=== PATIENT | female | born 1955 | race Caucasian/White ===

== ENCOUNTER 2020-11-02 19:07 | Inpatient (IN) | payer OTHER, MEDICAID ==
[~2020-11-02] VITALS: Ht 157.5 cm; Wt 72.7 kg
[~2020-11-02 19:07] MED LIST: ACET-2708 MT; ATOR10TA PO; LOSA50TA41 PO; METF-414 PO
[2020-11-02] MEDS ORDERED: KETOROLAC 15MG/ML VIAL IV ONE (20:15)
[2020-11-02 20:41] LABS: HEMATOCRIT. 31.4 % (36.0-48.0); HEMOGLOBIN. 10.1 g/dL (12.0-16.0); MEAN CORPUSCULAR HEMOGLOBIN 19.3 pg (28.0-32.0); MEAN CORPUSCULAR VOLUME 60.2 fL (81.0-99.0); MEAN PLATELET VOLUME 9.1 fl (7.4-10.4); PLATELET 199 x1000/uL (130-400); RED BLOOD CELL COUNT 5.22 mill/uL (4.2-5.4); RED CELL DISTRIBUTION WIDTH 22.5 % (11.6-14.6)
[2020-11-02 20:45] LABS: CHLORIDE 100 mEq/L (98-107)
[2020-11-02 21:12] LABS: PLATELET ESTIMATE NORMAL
[2020-11-02 23:19] LABS: CLARITY URINE TURBID (CLEAR); COLOR URINE ORANGE (YELLOW); KETONES URINE TRACE (NEGATIVE); LEUKOCYTE ESTERASE URINE 3+ (NEGATIVE); NITRITE URINE NEGATIVE (NEGATIVE); OCCULT BLOOD URINE 3+ (NEGATIVE); PH URINE 5.5 (4.5-8.0); PROTEIN URINE 2+ (NEGATIVE); SPECIFIC GRAVITY URINE 1.014 (1.005-1.030)
[2020-11-02] MEDS ORDERED: CEFTRIAXONE 1 G PREMIX 50 ML IV ONE (23:30)
[2020-11-02] MEDS ORDERED: SODIUM CHLORIDE 0.9% 1,000 ML IV ONE (23:30)
[2020-11-03 01:31] LABS: CREATINE KINASE > 14000 IU/L (26-192)
[2020-11-03] MEDS: SODIUM CHL 0.9% + KCL 20MEQ/L 1,000 ML IV SCH ×2 (02:31→18:01)
[2020-11-03 10:00] VITALS: BP 101/77
[2020-11-03] MEDS ORDERED: ALBUTEROL SULFATE (10:46)
[2020-11-03] MEDS ORDERED: FLUT1BLS9 IH (10:46)
[2020-11-03] MEDS ORDERED: HIGH CHOLESTEROL MED (10:46)
[2020-11-03] MEDS ORDERED: ONDANSETRON HCL 4MG/2ML INJ IV PRN (11:30)
[2020-11-03] MEDS ORDERED: ACETAMINOPHEN 325MG TABLET PO PRN (11:30)
[2020-11-03] MEDS ORDERED: DEXTROSE 50% WATER 50ML SYRINGE IV PRN (11:30)
[2020-11-03] MEDS: BLOOD SUGAR DIAGNOSTIC STRIP TEST SCH ×3 (12:20→21:32)
[2020-11-03] MEDS: SODIUM CHLORIDE 0.9% 1,000 ML IV SCH (13:25)
[2020-11-03] MEDS: METHYLPREDNISOLONE SOD SUCC 40 MG/ML VIAL IV SCH ×2 (13:35→21:59)
[2020-11-03] MEDS: INSULIN LISPRO 100 UNITS/ML SUBCUT SCH ×3 (14:00→21:31)
[2020-11-03 16:00] VITALS: BP 126/62
[2020-11-03] MEDS: IPRATROPIUM/ALBUTEROL 0.5-3(2.5)MG/3ML NEB HHN SCH ×3 (16:26→23:54)
[2020-11-03 20:00] VITALS: BP 109/60
[2020-11-03] MEDS: CEFTRIAXONE 1,000 MG in DEXTROSE 5% WATER 50 ML IV SCH (21:18)
[2020-11-03 21:41] LABS: HEMATOCRIT. 26.7 % (36.0-48.0); HEMOGLOBIN. 8.6 g/dL (12.0-16.0); MEAN CORPUSCULAR HEMOGLOBIN 19.4 pg (28.0-32.0); MEAN CORPUSCULAR VOLUME 60.6 fL (81.0-99.0); MEAN PLATELET VOLUME 8.8 fl (7.4-10.4); PLATELET 160 x1000/uL (130-400); RED BLOOD CELL COUNT 4.41 mill/uL (4.2-5.4); RED CELL DISTRIBUTION WIDTH 22.2 % (11.6-14.6)
[2020-11-03 21:53] LABS: CHLORIDE 106 mEq/L (98-107)
[2020-11-03 23:03] LABS: PLATELET ESTIMATE NORMAL
[2020-11-04] VITALS: BP 121/55
[2020-11-04] MEDS: SODIUM CHLORIDE 0.9% 1,000 ML IV SCH ×2 (00:50→14:04)
[2020-11-04] MEDS: IPRATROPIUM/ALBUTEROL 0.5-3(2.5)MG/3ML NEB HHN SCH ×5 (04:28→20:36)
[2020-11-04] MEDS: SODIUM CHL 0.9% + KCL 20MEQ/L 1,000 ML IV SCH (04:30)
[2020-11-04] MEDS: METHYLPREDNISOLONE SOD SUCC 40 MG/ML VIAL IV SCH ×2 (06:32→14:04)
[2020-11-04] MEDS: BLOOD SUGAR DIAGNOSTIC STRIP TEST SCH ×4 (07:20→21:00)
[2020-11-04 07:28] LABS: CHLORIDE 114 mEq/L (98-107)
[2020-11-04 07:34] LABS: MEAN CORPUSCULAR HEMOGLOBIN 19.7 pg (28.0-32.0); MEAN PLATELET VOLUME 8.7 fl (7.4-10.4); PLATELET 114 x1000/uL (130-400); RED CELL DISTRIBUTION WIDTH 22.2 % (11.6-14.6)
[2020-11-04 08:00] VITALS: BP 156/52
[2020-11-04 08:35] LABS: HEMOGLOBIN. 6.9 g/dL (12.0-16.0)
[2020-11-04 08:36] LABS: HEMATOCRIT. 21.3 % (36.0-48.0)
[2020-11-04] MEDS: INSULIN LISPRO 100 UNITS/ML SUBCUT SCH ×4 (10:12→21:00)
[2020-11-04] MEDS ORDERED: SODIUM POLYSTYRENE SULFONATE 15 G/60 ML BOT PO NR (11:00)
[2020-11-04 11:45] LABS: HEMATOCRIT 31.4 % (36.0-48.0); HEMOGLOBIN 9.7 g/dL (12.0-16.0)
[2020-11-04 12:00] VITALS: BP 166/75
[2020-11-04 16:00] VITALS: BP 159/80
[2020-11-04] MEDS ORDERED: NALOXONE HCL 0.4MG/ML VIAL IV PRN (16:15)
[2020-11-04 16:48] LABS: BG BASE EXCESS -8.7 mmol/L (-2.0-2.0); BG CARBOXYHEMOGLOBIN 0.3 % (0.5-1.5); BG FRACTION INSPIRED OXYGEN 21; BG HCO3 ACT 15.1 mmol/L (22.0-26.0); BG METHEMOGLOBIN 0.2 % (0.0-1.5); BG OXYHEMOGLOBIN 95.5 % (94.0-97.0); BG PCO2 26.4 mmHg (35.0-45.0); BG PH 7.376 (7.350-7.450); BG PO2 83.1 mmHg (75.0-100.0); BG SAMPLE SITE LEFT RADIAL; BG TOTAL HEMOGLOBIN 10.6 g/dL (12.0-18.0); BG VENT MODE ROOM AIR
[2020-11-04] MEDS ORDERED: INSULIN GLARGINE UD 100 UNITS/ML SYR SUBCUT NR (17:30)
[2020-11-04 19:11] LABS: PLATELET ESTIMATE DECREASED
[2020-11-04 20:00] VITALS: BP 140/74
[2020-11-04] MEDS: CEFTRIAXONE 1,000 MG in DEXTROSE 5% WATER 50 ML IV SCH (21:42)
[2020-11-04] MEDS: INSULIN GLARGINE UD 100 UNITS/ML SYR SUBCUT SCH (23:20)
[2020-11-04] MEDS: HYDROCODONE/ACETAMINOPHEN 5/325MG TABLET PO PRN (23:27)
[2020-11-05] VITALS (8 sets, daily range): BP systolic 119–135; BP diastolic 64–79
[2020-11-05] MEDS: IPRATROPIUM/ALBUTEROL 0.5-3(2.5)MG/3ML NEB HHN SCH ×4 (00:45→12:37)
[2020-11-05] MEDS: METHYLPREDNISOLONE SOD SUCC 40 MG/ML VIAL IV SCH ×2 (01:22→12:54)
[2020-11-05] MEDS: SODIUM CHLORIDE 0.9% 1,000 ML IV SCH ×2 (03:13→17:58)
[2020-11-05] MEDS: HYDROCODONE/ACETAMINOPHEN 5/325MG TABLET PO PRN (04:44)
[2020-11-05] MEDS: BLOOD SUGAR DIAGNOSTIC STRIP TEST SCH ×4 (06:31→21:41)
[2020-11-05 08:05] LABS: CHLORIDE 107 mEq/L (98-107)
[2020-11-05 08:13] LABS: TOTAL IRON BINDING CAPACITY 299 ug/dL (250-450)
[2020-11-05 08:14] LABS: LDL CHOLESTEROL 98 mg/dL (5-100)
[2020-11-05 08:15] LABS: HDL CHOLESTEROL 9 mg/dL (40-59)
[2020-11-05 08:26] LABS: FERRITIN 95 ng/mL (10-291)
[2020-11-05 08:37] LABS: HEPATITIS B SURFACE ANTIGEN NEGATIVE
[2020-11-05 08:41] LABS: MEAN CORPUSCULAR HEMOGLOBIN 19.1 pg (28.0-32.0); MEAN PLATELET VOLUME 8.9 fl (7.4-10.4); RED BLOOD CELL COUNT 4.26 mill/uL (4.2-5.4); RED CELL DISTRIBUTION WIDTH 22.9 % (11.6-14.6)
[2020-11-05 09:01] LABS: PLATELET 189 x1000/uL (130-400)
[2020-11-05 09:02] LABS: HEMOGLOBIN. 8.1 g/dL (12.0-16.0)
[2020-11-05 09:06] LABS: HEPATITIS A AB IGM NEGATIVE (NEGATIVE)
[2020-11-05 09:12] LABS: VITAMIN B12 SERUM 1286 pg/mL (211-911)
[2020-11-05] MEDS: INSULIN LISPRO 100 UNITS/ML SUBCUT SCH ×4 (10:00→23:07)
[2020-11-05] MEDS: INSULIN GLARGINE UD 100 UNITS/ML SYR SUBCUT SCH ×2 (10:28→22:15)
[2020-11-05] MEDS ORDERED: POTASSIUM CHLORIDE 20MEQ TABLET SR PO ONE (11:00)
[2020-11-05] MEDS ORDERED: POTASSIUM CHLORIDE 20MEQ TABLET SR PO NR (11:30)
[2020-11-05 12:51] LABS: INR 1.1; PROTHROMBIN TIME 11.5 sec (9.6-11.0)
[2020-11-05] MEDS: FERROUS SULFATE 325MG TABLET PO SCH ×2 (12:54→17:58)
[2020-11-05] MEDS: ASPIRIN 81MG TABLET PO SCH (17:58)
[2020-11-05 20:17] LABS: PLATELET ESTIMATE NORMAL
[2020-11-05] MEDS: CEFTRIAXONE 1,000 MG in DEXTROSE 5% WATER 50 ML IV SCH (21:58)
[2020-11-05] MEDS ORDERED: INSULIN GLARGINE UD 100 UNITS/ML SYR SUBCUT SCH (22:00)
[2020-11-06] VITALS (9 sets, daily range): BP systolic 117–151; BP diastolic 55–79
[2020-11-06] MEDS: SODIUM CHLORIDE 0.9% 1,000 ML IV SCH (06:26)
[2020-11-06] MEDS: BLOOD SUGAR DIAGNOSTIC STRIP TEST SCH ×4 (06:26→20:41)
[2020-11-06 06:30] LABS: CHLORIDE 110 mEq/L (98-107)
[2020-11-06 06:49] LABS: HEMATOCRIT. 27.9 % (36.0-48.0); HEMOGLOBIN. 8.7 g/dL (12.0-16.0); MEAN CORPUSCULAR HEMOGLOBIN 19.2 pg (28.0-32.0); MEAN CORPUSCULAR VOLUME 61.4 fL (81.0-99.0); MEAN PLATELET VOLUME 8.8 fl (7.4-10.4); PLATELET 205 x1000/uL (130-400); RED BLOOD CELL COUNT 4.54 mill/uL (4.2-5.4); RED CELL DISTRIBUTION WIDTH 23.1 % (11.6-14.6)
[2020-11-06 07:53] LABS: *AMPHETAMINES SCREEN URINE NEGATIVE (NEGATIVE); *BARBITURATES SCREEN URINE NEGATIVE (NEGATIVE); *BENZODIAZEPINES SCREEN URINE NEGATIVE (NEGATIVE)
[2020-11-06 07:54] LABS: *COCAINE SCREEN URINE NEGATIVE (NEGATIVE); METHADONE URINE SCREEN NEGATIVE (NEGATIVE); OPIATES URINE SCREEN PRESUMTIVE POSITIVE (NEGATIVE); PHENCYCLIDINE URINE SCREEN NEGATIVE (NEGATIVE)
[2020-11-06 07:55] LABS: CANNABINOID URINE SCREEN NEGATIVE (NEGATIVE)
[2020-11-06] MEDS: ASPIRIN 81MG TABLET PO SCH (08:23)
[2020-11-06] MEDS: INSULIN LISPRO 100 UNITS/ML SUBCUT SCH ×4 (08:31→21:35)
[2020-11-06] MEDS: FERROUS SULFATE 325MG TABLET PO SCH ×3 (08:41→17:09)
[2020-11-06] MEDS ORDERED: METHYLPREDNISOLONE SOD SUCC 40 MG/ML VIAL IV SCH (09:00)
[2020-11-06 10:07] LABS: CREATINE KINASE MB FRACTION 9.8 ng/mL (0.5-3.6)
[2020-11-06] MEDS: INSULIN GLARGINE UD 100 UNITS/ML SYR SUBCUT SCH ×2 (10:22→21:36)
[2020-11-06] MEDS: IPRATROPIUM/ALBUTEROL 0.5-3(2.5)MG/3ML NEB HHN SCH ×4 (11:55→21:10)
[2020-11-06] MEDS: BUDESONIDE 0.5MG/2ML NEB HHN SCH ×2 (13:26→21:09)
[2020-11-06 16:23] LABS: PLATELET ESTIMATE NORMAL
[2020-11-06 17:55] LABS: BG BASE EXCESS -5.4 mmol/L (-2.0-2.0); BG CARBOXYHEMOGLOBIN 0.5 % (0.5-1.5); BG DEOXYHEMOGLOBIN 1.8 % (0.0-5.0); BG FRACTION INSPIRED OXYGEN 21; BG HCO3 ACT 18.4 mmol/L (22.0-26.0); BG METHEMOGLOBIN 0.3 % (0.0-1.5); BG OXYGEN SATURATION 98.2 % (92.0-98.5); BG OXYHEMOGLOBIN 97.4 % (94.0-97.0); BG PCO2 29.7 mmHg (35.0-45.0); BG PO2 111.8 mmHg (75.0-100.0); BG SAMPLE SITE RIGHT RADIAL; BG TOTAL HEMOGLOBIN 8.9 g/dL (12.0-18.0); BG VENT MODE ROOM AIR
[2020-11-06] MEDS: METHYLPREDNISOLONE SOD SUCC 40 MG/ML VIAL IV SCH (20:41)
[2020-11-06] MEDS: CEFTRIAXONE 1,000 MG in DEXTROSE 5% WATER 50 ML IV SCH (20:42)
[2020-11-07] VITALS (13 sets, daily range): BP systolic 119–150; BP diastolic 54–78
[2020-11-07] MEDS: IPRATROPIUM/ALBUTEROL 0.5-3(2.5)MG/3ML NEB HHN SCH ×5 (01:09→20:29)
[2020-11-07] MEDS: BLOOD SUGAR DIAGNOSTIC STRIP TEST SCH ×4 (06:17→21:03)
[2020-11-07] MEDS: FERROUS SULFATE 325MG TABLET PO SCH ×3 (07:38→16:52)
[2020-11-07] MEDS: INSULIN LISPRO 100 UNITS/ML SUBCUT SCH ×4 (07:41→21:04)
[2020-11-07 08:04] LABS: HEMATOCRIT. 27.1 % (36.0-48.0); HEMOGLOBIN. 8.5 g/dL (12.0-16.0); MEAN CORPUSCULAR VOLUME 60.5 fL (81.0-99.0); MEAN PLATELET VOLUME 9.1 fl (7.4-10.4); PLATELET 238 x1000/uL (130-400); RED BLOOD CELL COUNT 4.48 mill/uL (4.2-5.4)
[2020-11-07 08:24] LABS: CHLORIDE 110 mEq/L (98-107)
[2020-11-07 08:32] LABS: CREATINE KINASE 209 IU/L (26-192)
[2020-11-07 08:35] LABS: CREATINE KINASE MB FRACTION 4.8 ng/mL (0.5-3.6)
[2020-11-07] MEDS: METHYLPREDNISOLONE SOD SUCC 40 MG/ML VIAL IV SCH ×2 (09:08→21:03)
[2020-11-07] MEDS: ASPIRIN 81MG TABLET PO SCH (09:08)
[2020-11-07] MEDS: BUDESONIDE 0.5MG/2ML NEB HHN SCH ×2 (09:08→20:29)
[2020-11-07] MEDS: INSULIN GLARGINE UD 100 UNITS/ML SYR SUBCUT SCH ×2 (10:23→21:05)
[2020-11-07] MEDS ORDERED: IOHEXOL-350 100 ML BOTTLE ONE (12:05)
[2020-11-07 21:00] LABS: PLATELET ESTIMATE NORMAL
[2020-11-07] MEDS: CEFTRIAXONE 1,000 MG in DEXTROSE 5% WATER 50 ML IV SCH (21:03)
[2020-11-08] VITALS (13 sets, daily range): BP systolic 122–150; BP diastolic 57–75
[2020-11-08] MEDS: IPRATROPIUM/ALBUTEROL 0.5-3(2.5)MG/3ML NEB HHN SCH ×7 (00:25→21:42)
[2020-11-08 06:47] LABS: HEMATOCRIT. 27.7 % (36.0-48.0); HEMOGLOBIN. 8.6 g/dL (12.0-16.0); MEAN CORPUSCULAR HEMOGLOBIN 18.9 pg (28.0-32.0); MEAN CORPUSCULAR VOLUME 60.9 fL (81.0-99.0); MEAN PLATELET VOLUME 9.1 fl (7.4-10.4); PLATELET 259 x1000/uL (130-400); RED BLOOD CELL COUNT 4.55 mill/uL (4.2-5.4); RED CELL DISTRIBUTION WIDTH 22.3 % (11.6-14.6)
[2020-11-08] MEDS: BLOOD SUGAR DIAGNOSTIC STRIP TEST SCH ×4 (06:50→20:47)
[2020-11-08 06:51] LABS: CHLORIDE 108 mEq/L (98-107)
[2020-11-08] MEDS: FERROUS SULFATE 325MG TABLET PO SCH ×3 (07:20→17:39)
[2020-11-08] MEDS: ASPIRIN 81MG TABLET PO SCH (08:24)
[2020-11-08] MEDS: BUDESONIDE 0.5MG/2ML NEB HHN SCH ×2 (08:36→21:41)
[2020-11-08] MEDS: METHYLPREDNISOLONE SOD SUCC 40 MG/ML VIAL IV SCH (08:58)
[2020-11-08] MEDS: INSULIN LISPRO 100 UNITS/ML SUBCUT SCH ×4 (08:59→21:16)
[2020-11-08] MEDS: INSULIN GLARGINE UD 100 UNITS/ML SYR SUBCUT SCH ×2 (10:00→21:17)
[2020-11-09] MEDS: IPRATROPIUM/ALBUTEROL 0.5-3(2.5)MG/3ML NEB HHN SCH ×4 (01:05→12:00)
[2020-11-09 04:11] VITALS: BP 113/50
[2020-11-09 06:00] VITALS: BP 104/31
[2020-11-09] MEDS: BLOOD SUGAR DIAGNOSTIC STRIP TEST SCH ×2 (06:03→12:29)
[2020-11-09] MEDS: INSULIN LISPRO 100 UNITS/ML SUBCUT SCH ×2 (06:17→12:20)
[2020-11-09 06:52] LABS: HEMATOCRIT. 27.9 % (36.0-48.0); HEMOGLOBIN. 9.1 g/dL (12.0-16.0); MEAN CORPUSCULAR VOLUME 61.3 fL (81.0-99.0); MEAN PLATELET VOLUME 8.6 fl (7.4-10.4); PLATELET 301 x1000/uL (130-400); RED BLOOD CELL COUNT 4.54 mill/uL (4.2-5.4); RED CELL DISTRIBUTION WIDTH 22.2 % (11.6-14.6)
[2020-11-09 06:54] LABS: INR 1.1; PARTIAL THROMBOPLASTIN TIME < 21.0 sec (23.4-31.0); PROTHROMBIN TIME 11.6 sec (9.6-11.0)
[2020-11-09 08:05] VITALS: BP 136/61
[2020-11-09 08:06] LABS: CHLORIDE 107 mEq/L (98-107)
[2020-11-09] MEDS: FERROUS SULFATE 325MG TABLET PO SCH ×2 (08:56→12:37)
[2020-11-09] MEDS: ASPIRIN 81MG TABLET PO SCH (08:57)
[2020-11-09] MEDS ORDERED: METHYLPREDNISOLONE SOD SUCC 40 MG/ML VIAL IV SCH (09:00)
[2020-11-09 09:07] VITALS: BP 108/51
[2020-11-09 09:29] LABS: NUCLEATED RED BLOOD CELLS 1 /100 WBC; PLATELET ESTIMATE NORMAL
[2020-11-09] MEDS: INSULIN GLARGINE UD 100 UNITS/ML SYR SUBCUT SCH (10:00)
[2020-11-09 11:50] LABS: CREATINE KINASE MB FRACTION 3.8 ng/mL (0.5-3.6)
[2020-11-09] MEDS ORDERED: MAGNESIUM 2 G PREMIX 50 ML IV SCH (12:00)
[2020-11-09 13:43] VITALS: BP 109/53
[2020-11-09 17:40] LABS: PLATELET ESTIMATE NORMAL
== END 2020-11-09 14:33 | disposition home or self-care (01) | DRG 871 ==
LOC: ER 19:43 → 6EST 11-03 00:10 → ENRESERV 11-03 07:30 → UNDODISIN 11-05 14:30 → 3WST 11-05 15:10
PROVIDERS: ADMIT Internal Medicine; ATTEND Internal Medicine
DX: A41.9 Sepsis, unspecified organism (principal); I50.43 Acute on chronic combined systolic (congestive) and diastolic (congestive) heart failure; J18.9 Pneumonia, unspecified organism; I21.4 Non-ST elevation (NSTEMI) myocardial infarction; N39.0 Urinary tract infection, site not specified; E44.0 Moderate protein-calorie malnutrition; E87.1 Hypo-osmolality and hyponatremia; J44.0 Chronic obstructive pulmonary disease with (acute) lower respiratory infection; M62.82 Rhabdomyolysis; J45.901 Unspecified asthma with (acute) exacerbation; I11.0 Hypertensive heart disease with heart failure; B96.20 Unspecified Escherichia coli [E. coli] as the cause of diseases classified elsewhere; D69.6 Thrombocytopenia, unspecified; E11.9 Type 2 diabetes mellitus without complications; E78.5 Hyperlipidemia, unspecified; E86.0 Dehydration; E87.5 Hyperkalemia; Z20.822 Contact with and (suspected) exposure to COVID-19; D50.9 Iron deficiency anemia, unspecified; R06.03 Acute respiratory distress; R74.01 Elevation of levels of liver transaminase levels; Z53.29 Procedure and treatment not carried out because of patient's decision for other reasons; I27.20 Pulmonary hypertension, unspecified; Z87.891 Personal history of nicotine dependence; Z90.49 Acquired absence of other specified parts of digestive tract; Z68.29 Body mass index [BMI] 29.0-29.9, adult
CPT/HCPCS: 36415; 36600; 71045; 71275; 72100; 72170; 76705; 80048; 80053; 80061; 80076; 80305; 81003; 82375; 82550; 82553; 82607; 82728; 82805; 82962; 83036; 83540; 83550; 83735; 83880; 84443; 84484; 85014; 85018; 85025; 85044; 86705; 86709; 86803; 87015; 87045; 87077; 87186; 87340; 87426; 87427; 87449; 87493; 93005; 93306; 93970; 94640; 97116; 97162; 99285; J0696; J1815; J1885; J2920; J3475; J3480; J7030; J7040; J7060; J7626; Q9967; U0003; U0005

== ENCOUNTER 2021-09-23 00:14 | Inpatient (IN) | payer OTHER ==
[~2021-09-23] VITALS: Ht 152.4 cm; Wt 66.7 kg
[~2021-09-23 00:14] MED LIST changes: +ALBUTEROL SULFATE; -ATOR10TA PO; +FLUT1BLS9 IH; +HIGH CHOLESTEROL MED
[2021-09-23] MEDS ORDERED: CEFTRIAXONE 1 G PREMIX 50 ML IV ONE (01:15)
[2021-09-23] MEDS ORDERED: SODIUM CHLORIDE 0.9% 1000ML BAG (SEPSIS BOLUS) IV ONE (01:15)
[2021-09-23] MEDS ORDERED: VANCOMYCIN 1G PREMIX 200 ML IV ONE (01:15)
[2021-09-23 01:27] LABS: HEMATOCRIT. 34.3 % (36.0-48.0); MEAN CORPUSCULAR VOLUME 68.6 fL (81.0-99.0); MEAN PLATELET VOLUME 8.6 fl (7.4-10.4); PLATELET 190 x1000/uL (130-400); RED BLOOD CELL COUNT 5.01 mill/uL (4.2-5.4); RED CELL DISTRIBUTION WIDTH 23.9 % (11.6-14.6)
[2021-09-23 01:34] LABS: CHLORIDE 103 mEq/L (98-107)
[2021-09-23] MEDS ORDERED: ACETAMINOPHEN 325MG TABLET PO ONE ×2 (01:45→09:00)
[2021-09-23 01:55] LABS: CLARITY URINE CLEAR (CLEAR); COLOR URINE YELLOW (YELLOW); KETONES URINE NEGATIVE (NEGATIVE); LEUKOCYTE ESTERASE URINE TRACE (NEGATIVE); NITRITE URINE POSITIVE (NEGATIVE); OCCULT BLOOD URINE TRACE (NEGATIVE); PH URINE 5.5 (4.5-8.0); PROTEIN URINE 1+ (NEGATIVE); SPECIFIC GRAVITY URINE 1.013 (1.005-1.030); UROBILINOGEN URINE 0.2 E.U./dL (0.2-1.0)
[2021-09-23] MEDS ORDERED: ALBUTEROL (0.083%) 2.5MG/3ML NEB HHN STA (05:47)
[2021-09-23] MEDS ORDERED: IPRATROPIUM BROMIDE (0.02%) 0.5MG/2.5ML NEB HHN STA (05:47)
[2021-09-23 08:35] LABS: PLATELET ESTIMATE NORMAL
[2021-09-23] MEDS ORDERED: DEXTROSE 50% WATER 50ML SYRINGE IV PRN (09:15)
[2021-09-23] MEDS ORDERED: CEFTRIAXONE 1 G PREMIX 50 ML IV SCH (10:00)
[2021-09-23 10:57] VITALS: BP 105/33
[2021-09-23] MEDS ORDERED: SIMV5TAB58 (11:21)
[2021-09-23] MEDS ORDERED: PANT20TA17 PO (11:22)
[2021-09-23 11:56] VITALS: BP 105/33
[2021-09-23] MEDS ORDERED: ONDANSETRON HCL 4MG/2ML INJ IV PRN (12:15)
[2021-09-23] MEDS: BLOOD SUGAR DIAGNOSTIC STRIP TEST SCH ×3 (12:32→21:00)
[2021-09-23] MEDS: INSULIN LISPRO 100 UNITS/ML SUBCUT SCH ×3 (12:33→21:00)
[2021-09-23 15:56] VITALS: BP 148/62
[2021-09-23] MEDS: ACETAMINOPHEN 325MG TABLET PO PRN (18:13)
[2021-09-23 20:00] VITALS: BP 150/56
[2021-09-24] VITALS: BP 119/46
[2021-09-24 04:00] VITALS: BP 147/59
[2021-09-24] MEDS: ACETAMINOPHEN 325MG TABLET PO PRN (05:25)
[2021-09-24] MEDS: INSULIN LISPRO 100 UNITS/ML SUBCUT SCH ×4 (07:37→20:14)
[2021-09-24] MEDS: BLOOD SUGAR DIAGNOSTIC STRIP TEST SCH ×4 (07:37→20:12)
[2021-09-24 08:00] VITALS: BP 106/50
[2021-09-24] MEDS: CEFTRIAXONE 1,000 MG in DEXTROSE 5% WATER 50 ML IV SCH (11:08)
[2021-09-24 12:00] VITALS: BP 116/50
[2021-09-24 16:00] VITALS: BP 127/48
[2021-09-24 17:33] LABS: BASOPHILS % 0.1 % (0.0-2.0); EOSINOPHILS % 0.3 % (0.0-5.0); HEMOGLOBIN. 10.1 g/dL (12.0-16.0); LYMPHOCYTES % 10.5 % (20.0-50.0); MEAN CORPUSCULAR HEMOGLOBIN 22.1 pg (28.0-32.0); MEAN CORPUSCULAR VOLUME 70.2 fL (81.0-99.0); MEAN PLATELET VOLUME 8.6 fl (7.4-10.4); MONOCYTES % 8.9 % (2.0-8.0); NEUTROPHILS % 80.2 % (40.0-76.0); PLATELET 128 x1000/uL (130-400); RED BLOOD CELL COUNT 4.56 mill/uL (4.2-5.4); RED CELL DISTRIBUTION WIDTH 24.5 % (11.6-14.6)
[2021-09-24 17:49] LABS: CHLORIDE 103 mEq/L (98-107)
[2021-09-24 20:00] VITALS: BP 136/58
[2021-09-24 22:32] LABS: PLATELET ESTIMATE SLIGHTLY DECREASED
[2021-09-25] VITALS: BP 152/57
[2021-09-25 04:00] VITALS: BP 143/66
[2021-09-25 08:00] VITALS: BP 128/42
[2021-09-25] MEDS: ACETAMINOPHEN 325MG TABLET PO PRN (09:02)
[2021-09-25] MEDS: CEFTRIAXONE 1,000 MG in DEXTROSE 5% WATER 50 ML IV SCH (11:04)
[2021-09-25 11:57] VITALS: BP 118/42
[2021-09-25] MEDS: BLOOD SUGAR DIAGNOSTIC STRIP TEST SCH ×2 (12:10→16:55)
[2021-09-25] MEDS: INSULIN LISPRO 100 UNITS/ML SUBCUT SCH ×2 (12:40→17:40)
[2021-09-25] MEDS ORDERED: LEVO500T90 MT (12:53)
[2021-09-25 16:25] LABS: MEAN CORPUSCULAR HEMOGLOBIN 22.3 pg (28.0-32.0); MEAN CORPUSCULAR VOLUME 69.3 fL (81.0-99.0); MEAN PLATELET VOLUME 8.8 fl (7.4-10.4); PLATELET 133 x1000/uL (130-400); RED BLOOD CELL COUNT 4.48 mill/uL (4.2-5.4); RED CELL DISTRIBUTION WIDTH 24.2 % (11.6-14.6)
[2021-09-25 16:43] LABS: CHLORIDE 101 mEq/L (98-107)
[2021-09-25] MEDS ORDERED: POTASSIUM CHLORIDE 20MEQ TABLET SR PO NR (17:30)
[2021-09-25 18:25] LABS: PLATELET ESTIMATE NORMAL
[2021-09-25 18:28] VITALS: BP 123/44
== END 2021-09-25 19:00 | disposition home or self-care (01) | DRG 872 ==
LOC: ER 00:14 → 8WST 09:09 → EDBEDREQTM 09:13 → EDBEDREQ 09:13 → EDBEDREQSVC 09:13 → ENRESERV 09:35
PROVIDERS: ADMIT Internal Medicine; ATTEND Internal Medicine
DX: A41.9 Sepsis, unspecified organism (principal); N39.0 Urinary tract infection, site not specified; E87.1 Hypo-osmolality and hyponatremia; I10 Essential (primary) hypertension; J45.909 Unspecified asthma, uncomplicated; E11.9 Type 2 diabetes mellitus without complications; R11.10 Vomiting, unspecified; D64.9 Anemia, unspecified
CPT/HCPCS: 36415; 71045; 74176; 80048; 80053; 81003; 82962; 83605; 83880; 84484; 85025; 87077; 87186; 93005; 94640; 99291; J0696; J1815; J3370; J7030; J7060